=== PATIENT | male | born 1950 | race Caucasian/White ===

== ENCOUNTER 2019-11-20 09:59 | Outpatient (NON) | payer MEDICARE, BC, SELFPAY ==
[2019-11-20 20:40] LABS: SARS-CoV-2 RNA PCR Negative
== END 2019-11-20 10:00 ==
PROVIDERS: Visit Provider Family Medicine Adolescent Medicine
DX: Z01.812 Encounter for preprocedural laboratory examination (principal); Z20.828 Contact with and (suspected) exposure to other viral communicable diseases
CPT/HCPCS: 87635; C9803; U0003